=== PATIENT | female | born 1990 | race Caucasian/White ===

== ENCOUNTER 2018-03-02 16:48 | Emergency (ER) | payer OTHER, MEDICAID ==
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
[2018-03-02 18:53] VITALS: BP 105/67
== END 2018-03-02 18:52 | disposition home or self-care (01) ==
DX: S06.0X0A Concussion without loss of consciousness, initial encounter (principal); V49.60XA Unspecified car occupant injured in collision with unspecified motor vehicles in traffic accident, initial encounter; Y92.410 Unspecified street and highway as the place of occurrence of the external cause; Y93.9 Activity, unspecified; Y99.9 Unspecified external cause status

== ENCOUNTER 2018-06-15 09:47 | Emergency (ER) | payer MEDICAID ==
--- NOTE | 2018-06-15 10:14 | EDPHY ---
H & P Stated Complaint: Bloating, intermittent lower abdominal pain, blood in stool x 1 month Time Seen by Provider: 06/15/18 09:49 HPI/ROS: Chief Complaint: Abdominal bloating, discomfort HPI: 28-year-old healthy woman with no medical history presenting complaining of intermittent abdominal bloating for the last month. She has been feeling constipated. She did have some back pain last week but that has since resolved. She also had some blood in her stool with hard stools last week. That has also since resolved. She states last night she was lying down she feels increasingly bloated. No nausea or vomiting. Intermittent hard and loose stools. No melena. No real pain but some discomfort. She has no pain at this time. 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 She does not have a primary care physician. Last normal menstrual. Was about 3 weeks ago. She is sexually active but does not have sex with men.. No urinary urgency or frequency. She is presenting today because she went to the urgent care and they instructed her to come the emergency department for a CT scan. ROS: 10 systems were reviewed and were negative except those elements noted in the HPI. PMH: Denies Social History: No smoking, no alcohol, no recreational drug use Family History: non-contributory Physical Exam: Gen: Awake, Alert, No Distress HEENT: Nose: no rhinorrhea Eyes: PERRLA, EOMI Mouth: Moist mucosa Neck: Supple, no JVD Chest: nontender, lungs clear to auscultation Heart: S1, S2 normal, no murmur Abd: Soft, very mildly distended, non-tender, no guarding Back: no CVA tenderness, no midline tenderness Ext: no edema, non-tender Skin: no rash Neuro: CN II-XII intact, Sensation grossly intact, Strength 5/5 in bilateral upper and lower extremities - Personal History LMP (Females 10-55): 15-21 Days Ago Current Tetanus/Diphtheria Vaccine: Unsure Current Tetanus Diphtheria and Acellular Pertussis (TDAP): Unsure - Medical/Surgical History Hx Asthma: No Hx Chronic Respiratory Disease: No Hx Diabetes: No Hx Cardiac Disease: No Hx Renal Disease: No Hx Cirrhosis: No Hx Alcoholism: No Hx HIV/AIDS: No Hx Splenectomy or Spleen Trauma: No Other PMH: denies - Social History Smoking Status: Current some day smoker Constitutional: Initial Vital Signs Temperature (C) 36.5 C 06/15/18 09:55 Heart Rate 72 06/15/18 09:55 Respiratory Rate 16 06/15/18 09:55 Blood Pressure 122/73 H 06/15/18 09:55 O2 Sat (%) 98 06/15/18 09:55 O2 Delivery Mode Room Air Allergies/Adverse Reactions: No Known Allergies Allergy (Verified 06/15/18 09:55) Home Medications: Medication Instructions Recorded FOLIC ACID 03/02/18 Probiotic 03/02/18 Medical Decision Making ED Course/Re-evaluation: Healthy 28-year-old woman presenting with abdominal bloating for the last month. Symptoms are consistent with some constipation. She has a completely soft and benign abdomen. I do not feel that she needs blood tests or CT scanning at this time. Urinalysis has been sent. Will give her instructions for constipation referral for primary care. She does have a appointment with gastroenterology in 1 month. Departure - Departure Disposition: Home, Routine, Self-Care Clinical Impression: Constipation Condition: Good Instructions: Constipation (ED), High Fiber Diet (ED) Additional Instructions: Increase the fiber in your diet, either through increasing high-fiber fruits and vegetables or adding a fiber supplement like Metamucil. Make sure to drink plenty of water every day. You may take MiraLax daily according to package instructions. If you feel constipated drink 1/2 bottle of magnesium citrate. Wait 1-2 hours. If you do not have a bowel movement after that time drink the 2nd half of the bottle. If you continues to be constipated you may use a Fleet's enema, available over- the-counter. Referrals: Yee Dover MD [Medical Doctor] - As per Instructions
[2018-06-15 10:33] VITALS: BP 122/78
== END 2018-06-15 10:31 | disposition home or self-care (01) ==
LOC: CED 09:47
DX: K59.00 Constipation, unspecified (principal)
CPT/HCPCS: 99282-ER